=== PATIENT | female | born 1980 | race Caucasian/White ===

== ENCOUNTER 2021-04-23 21:05 | Emergency (ER) | payer OTHER ==
[~2021-04-23] VITALS: Ht 167.6 cm; Wt 128.4 kg
[2021-04-23] MEDS ORDERED: SYNTHROID175 MCG PO (21:27)
[2021-04-23] MEDS ORDERED: VENTOLIN HFA18 GM INH (21:28)
[2021-04-23] MEDS ORDERED: AEROECLIPSE II1 EACH MISC (21:28)
--- OUTSIDE RECORDS SUMMARY | 2021-04-23 22:00 | XMS ---
PreManage Notification: ANAIS VIVAS Security Welder Boilermaker Events No recent Security Events currently on file CRITERIA MET - [facility] - 3 Facilities in 90 Days - 6 ED Visits in 6 Months - [facility] - Has Care Guidelines - [facility] - 2 Visits in 30 Days CARE PROVIDERS LAURA LÓPEZ [facility] Current PHONE: [phone] ANA WEI [facility] Current PHONE: [phone] Guidelines Source: [place] [place] Guidelines Date: 12/22/2020 Care Recommendation: Created On: 05/23/2016 16:05 Archived Care Plan: Board of Pharmacy Report: Dates investigated: 11/08/11 Total number of prescribing providers: 1 Total number of pharmacies:1 Total number of prescriptions: 1 Plan of care: 1.No addictive substance for subjective complaints. 2.SW to assist with PCP. 3.SW to assist with Psych referral and counseling resources. 4.SW to check where the children are; she has a 7 and 8 year old child. Progress notes: MICHAEL Johnson E.D. VISIT COUNT (12 MO.) 1 [facility] [address] [facility] H. 1 [facility] 2 [facility] - [facility] H. 1 [facility] 1 CHELITA Grayson [facility] TOTAL 13 NOTE: Visits indicate total known visits. ED/UCC VISIT TRACKING (12 MO.) 04/23/2021 21:06 [facility] [place] TYPE: Emergency COMPLAINT: - BACK PAIN, BLOOD IN URINE 04/09/2021 12:28 [facility] TYPE: Emergency DIAGNOSES: - Abdominal pain - Unspecified renal colic - Flank Pain - Hematuria, unspecified - Calculus of kidney 04/03/2021 11:53 [facility] Jose Angel MCDUFFIE TYPE: Emergency DIAGNOSES: 1. Unspecified abdominal pain 1. Calculus of kidney 2. Acquired absence of other specified parts of digestive tract 3. Acquired absence of kidney 4. Encounter for test, result negative 03/21/2021 15:58 [facility] MCDUFF[facility] TYPE: Emergency DIAGNOSES: 0. ABDOMINAL PAIN 01/08/2021 12:51 [facility] [place] TYPE: Emergency DIAGNOSES: - Flank Pain - Unspecified abdominal pain - Gross hematuria 12/31/2020 18:43 [facility] Yimi MCDUFFIE TYPE: Emergency DIAGNOSES: 1. Urinary tract infection, site not specified 1. Unspecified abdominal pain 2. Calculus of kidney 3. Encounter for test, result negative 4. Acquired absence of kidney 11/15/2020 21:16 [facility] DIAGNOSES: 0. RT FLANK PAIN X 2 DAYS 09/21/2020 17:27 [facility] TYPE: Emergency DIAGNOSES: - Acute kidney failure, unspecified - Diarrhea, unspecified - Nausea; Emesis - Nausea with vomiting, unspecified - Multiple Medical Problems 09/19/2020 09[facility] [facility] DIAGNOSES: 0. ABD PAIN 09/18/2020 18:32 [facility] Fritz [place] TYPE: Emergency DIAGNOSES: 0. R LOWER ABD PAIN 08/13/2020 13:48 [facility]FF[facility] TYPE: Emergency DIAGNOSES: 0. HEADACHE 08/07/2020 14:01 [facility] Pena ID TYPE: Emergency DIAGNOSES: 0. POST OP ISSUE VOMITING LOWER ABD PAIN 07/07/2020 11:37 [facility] MCDUFFIE TYPE: Emergency DIAGNOSES: 0. RIGHT SIDE PAIN INPATIENT VISIT TRACKING (12 MO.) No inpatient visits to display in this time frame [email or web address]
[2021-04-24] MEDS ORDERED: CEPHALEXIN500 MG PO (00:54)
== END 2021-04-24 01:35 | disposition home or self-care (01) ==
LOC: ED 21:05
DX: R10.9 Unspecified abdominal pain (principal); R31.9 Hematuria, unspecified; E03.9 Hypothyroidism, unspecified; F17.200 Nicotine dependence, unspecified, uncomplicated; Z88.6 Allergy status to analgesic agent; Z88.8 Allergy status to other drugs, medicaments and biological substances; Z88.0 Allergy status to penicillin; Z79.899 Other long term (current) drug therapy
CPT/HCPCS: 74176; 80053; 81001; 84703; 85025; 96374; 96375; 96376; 99284-25; J1170; J2405

== ENCOUNTER 2022-02-18 22:31 | Emergency (ER) | payer OTHER ==
[~2022-02-18] VITALS: Ht 167.6 cm; Wt 128.4 kg
[~2022-02-18 22:31] MED LIST: AEROECLIPSE II1 EACH MISC; CEPHALEXIN500 MG PO; SYNTHROID175 MCG PO; VENTOLIN HFA18 GM INH
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
== END 2022-02-19 00:10 | disposition home or self-care (01) ==
LOC: ED 22:31
DX: R10.9 Unspecified abdominal pain (principal); E03.9 Hypothyroidism, unspecified; F17.200 Nicotine dependence, unspecified, uncomplicated; Z88.6 Allergy status to analgesic agent; Z88.8 Allergy status to other drugs, medicaments and biological substances; Z88.0 Allergy status to penicillin; Z79.899 Other long term (current) drug therapy
CPT/HCPCS: 36415; 74176; 80048; 81001; 84703; 85025; 99284